=== PATIENT | male | born 1975 | race Caucasian/White ===

== ENCOUNTER 2018-03-11 07:01 | Emergency (ER) | payer OTHER, SELFPAY ==
[2018-03-11 07:07] VITALS: BP 133/83; PULSE 80; RESP 16; TEMP 36.8; O2SAT 92
--- NOTE | 2018-03-11 08:15 | DI.RAD_ITS ---
SYMPTOM/DIAGNOSIS: COUGH PA AND LATERAL CHEST: No priors. The heart is normal in size. The lungs are clear. The mediastinal structures and pleura appear intact. CONCLUSION: Normal chest.
--- NOTE | 2018-03-11 08:30 | W.ED.GENAD ---
Discharge Plan Disposition Patient Disposition: HOME Discharge Details Chief Complaint: RespSymp Clinical Impression: Bronchitis ED Provider: Ilia Oliver Home Meds and New Rx's Prescriptions: New doxycycline hyclate 100 mg capsule 100 mg PO BID Qty: 13 RF: 0 Discharge Instructions Instructions: How to Stop Smoking (ED), Acute Bronchitis (ED) Additional Instructions: Please rest over the next few days. Take antibiotic as prescribed. Please contact your primary care physician to arrange follow-up. Return to the ER for any worsening or new concerning symptoms. Stand Alone Forms: Work Release Medical Decision Making 8:15 -- 32yo m smoker here with SOB and cough over the past 4 days. Saturating in the low 90s. Afebrile. Hemodynamically stable. 8:54 -- cxr reviewed and interpreted by radiology: negative Plan to treat with doxycycline for bronchitis vs early pneumonia. Patient was advised to follow-up with PCP. I recommended he have a follow-up appointment in the next 1-2 weeks if symptoms do not completely resolve with antibiotics. Patient verbalizd understanding of importance of follow-up. I encouraged him to return to the ER at any time for worsening or new concerning symptoms. Smoking cessation counseling was provided. We discussed importance of continued efforts to stop smoking. Patient seems motivated. HPI General Mode of arrival: ambulatory. Date/Time Provider Initiated Documentation: 03/11/18 07:59. Limitations to Documentation: no limitations. Information obtained by: patient. HPI Narrative: 42-year-old male smoker presents with chief complaint of shortness of breath. Patient notes that he has had shortness of breath over the past 4 days. Symptoms are persistent and seemed to wax and wane in intensity. At times shortness of breath is moderate to severe. No modifiers. He has associated cough that is intermittently productive of green sputum over the past 4 days. Patient denies associated fever. No chest pain. No leg swelling or calf pain. No recent travel. 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 Patient does note a [id number] smoking history. He has never been diagnosed with asthma or COPD. Related Data Home Medications Medication Instructions Recorded Confirmed doxycycline hyclate 100 mg PO BID #13 cap 03/11/18 Previous Rx's Medication Instructions Recorded doxycycline hyclate 100 mg PO BID #13 cap 03/11/18 Allergies Allergy/AdvReac Type Severity Reaction Status Date / Time ibuprofen AdvReac Intermediate Unverified 03/11/18 07:11 General Stated Complaint: RespSymp LILLIAN: 3 Review of Systems Cardiovascular Denies chest pain Respiratory Reports as per HPI and Reports cough PFSH Social History Smoking/Tobacco Use Status: Current every day Exam Const General: cooperative and no acute distress HENMT Head: normocephalic and atraumatic Mouth: moist mucous membranes Eyes Conjunctivae: normal conjunctivae Sclera: normal sclerae EOM: EOM intact bilaterally Neck Neck: trachea midline and supple Resp Effort & Inspection: normal respiratory effort, able to speak in complete sentences and normal respiratory pattern Auscultation: clear to auscultation bilaterally, no rales, no rhonchi and no wheezes Other: intermittent cough Cardio Jugular venous pressure: no JVD Rate: regular rate and not tachycardic Rhythm: regular rhythm GI Palpation: soft, not firm, no guarding, no masses, not rigid and nontender Skin General skin exam: no rashes or lesions noted Other: no cyanosis Neuro General: alert, awake, oriented x3 and tone normal Extrem General: no edema Psych Appearance: grossly normal Mental Status: mental status grossly normal Speech and Movement: speech and movement normal Course Vital Signs Temperature 36.8 C 03/11/18 07:07 Pulse 80 03/11/18 07:07 Respiratory Rate 16 03/11/18 07:07 Blood Pressure 133/83 03/11/18 07:07 Pulse Oximetry 92 L 03/11/18 07:07 Temperature 36.8 C 03/11/18 07:07 Pulse 80 03/11/18 07:07 Respiratory Rate 16 03/11/18 07:07 Respiratory Effort Non-Labored 03/11/18 07:11 Respiratory Depth Normal 03/11/18 07:11 Blood Pressure 133/83 03/11/18 07:07 Blood Pressure Position Sitting 03/11/18 07:07 Pulse Oximetry 92 L 03/11/18 07:07 Oxygen Delivery Method Room Air 03/11/18 07:07 Oxygen Flow Rate 0 03/11/18 07:07 Pain Level 3 03/11/18 07:07
--- NOTE | 2018-03-11 08:36 | ED.GENADUL_ITS ---
Discharge Plan Disposition Patient Disposition: HOME Discharge Details Chief Complaint: RespSymp Clinical Impression: Bronchitis ED Provider: Ilia Oliver Home Meds and New Rx's Prescriptions: New doxycycline hyclate 100 mg capsule 100 mg PO BID Qty: 13 RF: 0 Discharge Instructions Instructions: How to Stop Smoking (ED), Acute Bronchitis (ED) Additional Instructions: Please rest over the next few days. Take antibiotic as prescribed. Please contact your primary care physician to arrange follow-up. Return to the ER for any worsening or new concerning symptoms. Stand Alone Forms: Work Release Medical Decision Making 8:15 -- 32yo m smoker here with SOB and cough over the past 4 days. Saturating in the low 90s. Afebrile. Hemodynamically stable. 8:54 -- cxr reviewed and interpreted by radiology: negative Plan to treat with doxycycline for bronchitis vs early pneumonia. Patient was advised to follow-up with PCP. I recommended he have a follow-up appointment in the next 1-2 weeks if symptoms do not completely resolve with antibiotics. Patient verbalizd understanding of importance of follow-up. I encouraged him to return to the ER at any time for worsening or new concerning symptoms. Smoking cessation counseling was provided. We discussed importance of continued efforts to stop smoking. Patient seems motivated. HPI General Mode of arrival: ambulatory . Date/Time Provider Initiated Documentation: 03/11/18 07:59 . Limitations to Documentation: no limitations . Information obtained by: patient . HPI Narrative: 42-year-old male smoker presents with chief complaint of shortness of breath. Patient notes that he has had shortness of breath over the past 4 days. Symptoms are persistent and seemed to wax and wane in intensity. At times shortness of breath is moderate to severe. No modifiers. He has associated cough that is intermittently productive of green sputum over the past 4 days. Patient denies associated fever. No chest pain. No leg swelling or calf pain. No recent travel. 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 Patient does note a [id number] smoking history. He has never been diagnosed with asthma or COPD. Related Data Home Medications Medication Instructions Recorded Confirmed doxycycline hyclate 100 mg PO BID #13 cap 03/11/18 Previous Rx's Medication Instructions Recorded doxycycline hyclate 100 mg PO BID #13 cap 03/11/18 Allergies Allergy/AdvReac Type Severity Reaction Status Date / Time ibuprofen AdvReac Intermediate Unverified 03/11/18 07:11 General Stated Complaint: RespSymp LILLIAN: 3 Review of Systems Cardiovascular Denies chest pain Respiratory Reports as per HPI and Reports cough PFSH Social History Smoking/Tobacco Use Status: Current every day Exam Const General: cooperative and no acute distress HENMT Head: normocephalic and atraumatic Mouth: moist mucous membranes Eyes Conjunctivae: normal conjunctivae Sclera: normal sclerae EOM: EOM intact bilaterally Neck Neck: trachea midline and supple Resp Effort & Inspection: normal respiratory effort, able to speak in complete sentences and normal respiratory pattern Auscultation: clear to auscultation bilaterally, no rales, no rhonchi and no wheezes Other: intermittent cough Cardio Jugular venous pressure: no JVD Rate: regular rate and not tachycardic Rhythm: regular rhythm GI Palpation: soft, not firm, no guarding, no masses, not rigid and nontender Skin General skin exam: no rashes or lesions noted Other: no cyanosis Neuro General: alert, awake, oriented x3 and tone normal Extrem General: no edema Psych Appearance: grossly normal Mental Status: mental status grossly normal Speech and Movement: speech and movement normal Course Vital Signs Temperature 36.8 C 03/11/18 07:07 Pulse 80 03/11/18 07:07 Respiratory Rate 16 03/11/18 07:07 Blood Pressure 133/83 03/11/18 07:07 Pulse Oximetry 92 L 03/11/18 07:07 Temperature 36.8 C 03/11/18 07:07 Pulse 80 03/11/18 07:07 Respiratory Rate 16 03/11/18 07:07 Respiratory Effort Non-Labored 03/11/18 07:11 Respiratory Depth Normal 03/11/18 07:11 Blood Pressure 133/83 03/11/18 07:07 Blood Pressure Position Sitting 03/11/18 07:07 Pulse Oximetry 92 L 03/11/18 07:07 Oxygen Delivery Method Room Air 03/11/18 07:07 Oxygen Flow Rate 0 03/11/18 07:07 Pain Level 3 03/11/18 07:07
[2018-03-11 08:41] VITALS: PULSE 68; O2SAT 95
[2018-03-11] MEDS: Doxycycline Hyclate 100 MG CAP PO (08:51)
[2018-03-11 09:04] VITALS: BP 133/83; PULSE 68; RESP 16; TEMP 36.8; O2SAT 95
--- NOTE | 2018-03-12 09:08 | PDOC.ERCMPRO ---
Care Management Progress Note 03/12/18-Pt seen on 03/11/18 for bronchitis and significant hx of smoking. Request to establish PCP and f/u within 1-2 weeks was faxed to [facility] as Dr. Shira Gallegos was environmental laboratory technician.
== END 2018-03-11 09:05 | disposition home or self-care (01) ==
LOC: ER 09:08
PROVIDERS: Emergency Provider Student in an Organized Health Care Education/Training Program
DX: J20.9 Acute bronchitis, unspecified (principal); F17.210 Nicotine dependence, cigarettes, uncomplicated
CPT/HCPCS: 99283; 71046

== ENCOUNTER 2018-03-14 10:49 | Emergency (ER) | payer OTHER, SELFPAY ==
[2018-03-14] VITALS (38 sets, daily range): BP systolic 110–128; BP diastolic 62–88; PULSE 60–86; RESP 2–24; TEMP 36.8–37.1; O2SAT 91–100
--- NOTE | 2018-03-14 10:52 | DI.RAD_ITS ---
SYMPTOM/DIAGNOSIS: SHORTNESS OF BREATH, DIZZINESS, R/O ACUTE DISEASE CHEST X-RAY: PA and lateral. Comparison 03/11/18 The heart is normal in size. The lungs are clear. The mediastinal structures and pleura appear intact. CONCLUSION: Normal chest.
--- NOTE | 2018-03-14 10:54 | W.ED.GENAD ---
Discharge Plan Disposition Patient Disposition: HOME Condition: Improving Discharge Details Chief Complaint: Dizzy/Sync Clinical Impression: Acute bronchitis Primary Care Provider: NONE,NONE ED Provider: Odalis Marte Home Meds and New Rx's Prescriptions: Continue doxycycline hyclate 100 mg capsule 100 mg PO BID Qty: 13 RF: 0 Discharge Instructions Instructions: Acute Bronchitis (ED) Additional Instructions: Use the inhaler 2 puffs every 4-6 hours as needed and directed for shortness of breath or wheezing. Take the steroids until finished. Finished the antibiotics as directed. Follow-up with the primary care doctor in 1 week for reevaluation. You should receive a call from care management regarding this follow-up appointment. Return to the emergency department any worsening or new concerning symptoms. Discharge Data Discharge Date/Time-TO BE ENTERED AT DEPARTURE: 03/14/18 16:39 Discharge Physician: Odalis Marte Medical Decision Making Patient is a 42-year-old smoker who presents for cough and shortness of breath for the past week. Presented today for an episode of dizziness while walking to work in which he needed to sit down. Patient was seen here 3 days ago for same and diagnosed with bronchitis and sent home with doxycycline which he is taking. He denies chest pain. 1052 --EKG on arrival notes a rate of 72, sinus, no acute ST elevation or depression, QTc 387. QRS 94. Cardiac workup and albuterol ordered on arrival and negative. White blood cell count 10. Hemoglobin 16. D-dimer 128. Troponin negative. Chest x-ray negative. 1230 --patient states he feels a little better after the albuterol treatment. On my exam, patient has diffuse wheezing and rhonchi. Oxygen saturation 94% on room air. Patient airway is intact and he speaking in full sentences. Patient would benefit from another neb treatment and dose of steroids. He appears mildly anxious, will give a dose of Ativan. 1625 --patient feels much better is requesting to go home. We will give inhaler for home and prescription for steroids. Instructed to finish his doxycycline. We will have care management to schedule follow-up appointment with her primary care doctor and to return here if worse. HPI General Mode of arrival: ambulatory. Date/Time Provider Initiated Documentation: 03/14/18 10:51. Limitations to Documentation: no limitations. Information obtained by: patient. HPI Narrative: Patient is a 42-year-old smoker who presents for cough and shortness of breath for the past week. States the cough is productive of green and [place]gadillo sputum. Presented today for an episode of dizziness while walking to work in which he needed to sit down. Patient was seen here 3 days ago for same and diagnosed with bronchitis and sent home with doxycycline which he is taking. He denies known fever, nausea, vomiting, chest pain, palpitations, leg pain, leg swelling, recent travel or recent surgery. States he has been eating and drinking normally. States he works in [employer] and does not always use respiratory protection. Past medical history: None Surgical history: Dental extraction, right fourth finger surgery Social history: Smokes tobacco, occasional beer, denies drugs Medications: Doxycycline Allergies: None; Ibuprofen (precautionary for bleeding) PCP: None Related Data Home Medications Medication Instructions Recorded Confirmed doxycycline hyclate 100 mg PO BID #13 cap 03/11/18 03/14/18 Previous Rx's Medication Instructions Recorded doxycycline hyclate 100 mg PO BID #13 cap 03/11/18 Allergies Allergy/AdvReac Type Severity Reaction Status Date / Time ibuprofen AdvReac Intermediate precautionary Unverified 03/14/18 11:02 for bleeding General Stated Complaint: Dizzy/Sync LILLIAN: 3 Review of Systems Review of Systems All systems reviewed & are unremarkable except as noted in HPI and below Constitutional Denies chills, Denies excessive sweating, Denies fatigue, Denies fever(s), Denies weakness and Denies weight loss Eyes Reports system reviewed and no additional complaints, except as docu and Denies blurry vision ENT Denies vertigo, Denies dizziness, Denies otalgia, Denies nasal congestion, Denies sore throat and Denies throat swelling Cardiovascular Denies chest pain, Denies syncope, Denies rapid heart rate and Reports dyspnea Respiratory Reports cough and Reports dyspnea Gastrointestinal Denies abdominal pain, Denies diarrhea and Denies vomiting Genitourinary Denies hematuria, Denies dysuria and Denies flank pain Musculoskeletal Denies back pain and Denies joint swelling Integumentary/Breasts Denies lesions and Denies rash Neurologic Denies behavioral changes, Denies confusion, Denies vertigo, Denies dizziness, Denies syncope and Denies weakness Psychiatric Denies behavioral changes, Denies confusion and Denies depression Endocrine Denies excessive sweating and Denies fatigue Hematologic/Lymphatic Denies easy bruising and Denies lymphadenopathy Allergic/Immunologic Denies throat swelling [facility] Social History Smoking/Tobacco Use Status: Current every day Exam Const General: cooperative and healthy appearing Orientation: alert and awake HENMT Head: normal to inspection Ears: hearing grossly normal bilaterally, external ears normal and TM's normal bilaterally General nose exam: external nose normal Face and sinus: normal facial exam Mouth: oral mucosae normal Throat: posterior oropharynx normal Eyes General: appearance normal, both eyes and all related structures Eyelids: eyelids normal Pupils: PERRL EOM: EOM intact bilaterally Neck Neck: normal visual inspection Lymphatic: no lymphadenopathy noted Chest Chest: normal inspection of the chest Resp Effort & Inspection: normal respiratory effort and able to speak in complete sentences Auscultation: no crackles, no rales, rhonchi and wheezes Cardio Rate: regular rate Rhythm: regular rhythm GI Inspection: normal to inspection Palpation: soft, not firm, no guarding, no hepatosplenomegaly, no masses and nontender Auscultation: normal bowel sounds Skin General skin exam: no rashes or lesions noted Neuro General: alert and awake Cognition: normal cognition Speech: speech normal Gait: normal gait Motor: muscle tone normal throughout Sensory Exam: no sensory deficits noted Extrem General: normal to inspection, full ROM, normal capillary refill and no edema Psych Appearance: grossly normal Mental Status: mental status grossly normal Speech and Movement: speech and movement normal Affect: normal affect Thought Process: normal Course Vital Signs Temperature 98.8 F 03/14/18 10:42 Pulse 80 03/14/18 10:42 Respiratory Rate 14 03/14/18 10:42 Blood Pressure 127/84 03/14/18 10:42 Pulse Oximetry 95 03/14/18 10:42 Temperature 98.8 F 03/14/18 10:42 Temperature Source Skin 03/14/18 10:42 Pulse 80 03/14/18 10:42 Respiratory Rate 14 03/14/18 10:42 Blood Pressure 127/84 03/14/18 10:42 Blood Pressure Position Supine 03/14/18 10:42 Pulse Oximetry 95 03/14/18 10:42 Oxygen Delivery Method Room Air 03/14/18 10:42 Oxygen Flow Rate 0 03/14/18 10:42 Pain Level 0 03/14/18 10:42
[2018-03-14] MEDS: Albuterol 2.5 MG/3 ML INH SOLN VIAL UPD (11:09)
[2018-03-14] MEDS: Normal Saline 1,000 ML 1000 ML IV (11:15)
[2018-03-14 11:37] LABS: Abs Immature Grans 0.06 k/cumm (0.0-0.09); Absolute Basophil Count 0.15 k/cumm (0.0-0.2); Absolute Eosinophil Count 0.19 k/cumm (0.0-0.7); Absolute Lymphocyte Count 2.51 k/cumm (1.2-3.4); Absolute Monocyte Count 1.16 k/cumm (0.11-0.7); Absolute Neutrophil Count 6.18 k/cumm (1.2-6.7); Basophils % 1.5; Eosinophils % 1.9; Immature Grans % 0.6; Lymphocytes % 24.5; Mean Corp. HGB Concentration 36.4 g/dL (32.0-36.0); Mean Corpuscular Hemoglobin 31.1 pg (27.0-33.0); Mean Corpuscular Volume 85.6 fL (80-95); Mean Platelet Volume 9.2 fL (8.0-11.0); Monocytes % 11.3; Neutrophils % 60.2; Platelet Count 282 x1000/uL (130-400); RBC 5.14 m/cumm (4.50-6.00); RBC Distribution Width 12.7 % (11.8-14.1); White Blood Cell Count 10.25 k/cumm (4.4-10.8)
[2018-03-14 11:51] LABS: ALT 39 U/L (12-78); AST 20 U/L (15-37); Albumin 4.2 g/dL (3.4-5.0); Alkaline Phosphatase 67 U/L (46-116); Anion Gap 11.2 mmol/L (3-11); BUN 14 mg/dL (7-18); Bilirubin, Direct 0.12 mg/dL (0.00-0.20); Bilirubin, Total 0.7 mg/dL (0.2-1.0); CO2 23.8 mmol/L (21.0-32.0); Calcium 8.8 mg/dL (8.5-10.1); Chloride 104 mmol/L (98-107); Glucose 96 mg/dL (70-100); Magnesium 1.6 mg/dL (1.8-2.4); Potassium 3.7 mmol/L (3.5-5.1); Sodium 139 mmol/L (136-145); Total Protein 7.2 g/dL (6.4-8.2)
[2018-03-14 11:56] LABS: Troponin I < 0.02 ng/mL (0.00-0.06)
[2018-03-14 12:11] LABS: D-Dimer 128 ng/mlFEU (<500)
[2018-03-14] MEDS: predniSONE 20 MG TAB 60 MG PO (13:33)
[2018-03-14] MEDS: LORazepam 0.5 MG TAB PO (13:34)
[2018-03-14] MEDS: Albuterol 2.5 MG/3 ML INH SOLN VIAL 7.5 MG UPD (13:45)
[2018-03-14] MEDS: Albuterol HFA 8 GM 60 PUFF INH IH (16:36)
== END 2018-03-14 16:39 | disposition home or self-care (01) ==
PROVIDERS: Emergency Provider Physician Assistant
DX: J20.9 Acute bronchitis, unspecified (principal); F17.210 Nicotine dependence, cigarettes, uncomplicated
CPT/HCPCS: 36415; 80053; 80076; 93005; 94640; 94644; 96360; 99285; 71046; 83735; 84484; 85025; 85379; 93010; 99284; J7512; J7613

== ENCOUNTER 2023-09-03 13:58 | Emergency (ER) | payer SELFPAY ==
[2023-09-03 14:04] VITALS: BP 140/99; PULSE 77; RESP 16; TEMP 37; O2SAT 97
--- NOTE | 2023-09-03 14:45 | DI.RAD_ITS ---
Exam(s) XR THORACIC SPINE COMPLETE EXAM: XR THORACIC SPINE COMPLETE CLINICAL HISTORY: rotational injury. TECHNIQUE: 2D digital imaging was performed. COMPARISON: No exams were available for comparison FINDINGS: 3 views No evidence of compression fracture nor listhesis nor disc space narrowing. No abnormal widening of the paraspinal lines. No scoliosis. No osseous lesions. Bone density is normal. IMPRESSION: No significant radiographic findings on these thoracic spine images. DATA REPOSITORY: RADIATION DOSE DELIVERED:
--- NOTE | 2023-09-03 14:58 | ED.GENADUL_ITS ---
Discharge Plan Disposition Patient Disposition: Home Condition: Good Discharge Details Chief Complaint: Nk/Back Pain Clinical Impression: Muscle spasm, Back pain, thoracic Primary Care Provider: None,None ED Provider: Miriam Boland Home Meds and New Rx's Prescriptions: No Action No Known Home Meds Discharge Instructions Instructions: Muscle Spasm (ED), Back Pain (ED) Additional Instructions: X-rays reassuring here today. Please encourage hydration. May use 1000 mg of Tylenol 4 times a day to help with pain. This naproxen is worked well for you historically, please go back to using this morning and night to help with inflammation and pain. You may use lidocaine patches. Referral for physical therapy is attached. Please encourage stretching. Gentle range of motion. Heat and/or ice to help with pain. May advance her activities as tolerated. Referral for local primary care has been sent. If you develop any new or worsening symptoms to seek care urgently once again. Stand Alone Forms: Physical Therapy Referral, Work Release HPI General Mode of arrival: ambulatory . Date/Time Provider Initiated Documentation: 09/03/23 13:59 . Limitations to Documentation: no limitations . Information obtained by: patient and RN notes reviewed . History of Present Illness 48 year old M presents to the emergency department with the chief complaint of thoracic spine pain, described as severe and similar to prior episodes (has had back pain historically, typically lower spine associated with disc issues), Quality is described as aching, and is localized to the back. Patient reports no radiation. Patient started experiencing this day(s) (8) and it has been constant. Immobilization improves symptom(s), Movement worsens symptoms . Patient notes no other symptoms.; denies chest pain, cough, fever/chills, headaches, nausea/vomiting, rash, shortness of breath and weakness. Patient did receive the following treatments prior to arrival, none Related Data Home Medications Medication Instructions Recorded Confirmed Unknown [No Known Home Meds] 09/03/23 09/03/23 Allergies Allergy/AdvReac Type Severity Reaction Status Date / Time ibuprofen AdvReac Intermediate precautionary Unverified 09/03/23 14:09 for bleeding General Stated Complaint: Nk/Back Pain LILLIAN: 3 Review of Systems Constitutional Constitutional: Reports as per HPI, Denies chills, Denies fever(s), Denies frequent falls and Denies headache(s) ENT Ears, Nose, Mouth, and Throat: Denies headache(s) Cardiovascular Cardiovascular: Denies chest pain, Denies dyspnea and Denies dyspnea on exertion Respiratory Respiratory: Denies cough, Denies dyspnea and Denies dyspnea on exertion Gastrointestinal Gastrointestinal: Denies abdominal pain, Denies change in bowel habits and Denies fecal incontinence Genitourinary Genitourinary: Reports as per HPI, Denies urinary hesitancy and Denies urinary incontinence Musculoskeletal Musculoskeletal: Reports as per HPI, Reports back pain, Denies muscle weakness, Denies numbness, Denies radiating pain into limb, Reports stiffness and Denies tingling Integumentary/Breasts Skin/Breast: Reports as per HPI and Denies rash Neurologic Neurologic: Reports as per HPI, Denies frequent falls, Denies headache(s), Denies localized weakness, Denies numbness, Denies radicular pain, Denies sensory deficit, Denies tingling and Denies paresthesias Exam Const General: cooperative, healthy appearing, comfortable, no acute distress, well developed and well groomed Nutritional Appearance: average body habitus and well nourished Orientation: alert and awake Eyes General: appearance normal, both eyes and all related structures Neck Neck: normal visual inspection, full ROM, no lymphadenopathy and no meningeal signs Resp Effort & Inspection: normal respiratory effort and able to speak in complete sentences Auscultation: clear to auscultation bilaterally Cardio Rate: regular rate Rhythm: regular rhythm Heart Sounds: S1 normal and S2 normal Back/Spine/Pelvis Cervical Spine: normal cervical lordosis, cervical ROM normal, No cervical spasm, No cervical spinal tenderness and No step off deformity Thoracic/Lumbar Spine: thoracic and lumbar spine normal to inspection, No paraspinal tenderness, thoracic spinal tenderness (diffuse, no point tenderness, no step-off) and No lumbar spinal tenderness Back/spine/pelvis image: 2 1. area of lipoma, no erythema, warmth, tenderness 2. area of smaller lipoma, no erythema, warmth, tenderness Skin General skin exam: no rashes or lesions noted Neuro General: patient alert and patient awake Cognition: normal cognition Speech: speech normal Gait: normal gait Motor: muscle tone normal throughout, strength 5/5 throughout, no movement abnormalities noted and no fasciculations Sensory Exam: no sensory deficits noted (no saddle paresthesias) Extrem General: normal to inspection, full ROM, capillary refill normal, no joint enlargement, no pedal edema, no calf tenderness and normal gait Course Vital Signs Vital signs: Vital Signs Temperature 37.0 C 09/03/23 14:04 Pulse 77 09/03/23 14:04 Respiratory Rate 16 09/03/23 14:04 Blood Pressure 140/99 H 09/03/23 14:04 Pulse Oximetry 97 09/03/23 14:04 Temperature 37.0 C 09/03/23 14:04 Pulse 77 09/03/23 14:04 Respiratory Rate 16 09/03/23 14:04 Blood Pressure 140/99 H 09/03/23 14:04 Pulse Oximetry 97 09/03/23 14:04 Pain Level 8 09/03/23 14:04 Comment center of shoulder blades 09/03/23 14:04 Medical Decision Making Patient is a pleasant 48-year-old male no significant past medical history, presenting today with chief complaint of thoracic spine pain. He reports that this began 8 days ago. States that he had been shoveling snow when he slipped and suffered a rotational injury causing him to finally land into the snow. He denies injury at the time of the fall but feels that it was more pain associated with the rotational injury. He denies any new numbness or tingling. Reports chronic sensory deficit along the ulnar side of the right upper extremity which she associates with elbow pathology. No acute change in this. Denies any change in gait or difficulty with ambulation. No change in bowel or bladder habits. Denies any shortness of breath, chest pain. No cough or shortness of breath. Patient was seen at outside hospital, diagnosed with muscle spasm. Patient is treated with oral prednisone. He states that this helped for about 1 day and then pain came back not worsened. Has not been using much for [id number] pain medication as he is concerned for blunting his pain. Patient does have a history of suffered her to addiction and is also concerned with use of these medications. On exam, patient appears nontoxic. Neurovascularly intact. Exam of the spine shows only diffuse pain along the thoracic region and midline pain but no step- off. No pain elsewhere or pain with palpation of the ribs. 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 He reports this is followed by his primary care. This primarily on the upper right side extending into the neck. Also with a small lipoma left of midline. No erythema or warmth. No pain with palpation over these areas. While I agree with the initial concern of muscle spasm the most likely, consider potential fractures patient's been 8 days since his initial injury and pain has not improved at all. Will obtain an x-ray out of abundance of caution. Will give Tylenol and ibuprofen to help with discomfort. Discussed plan with the patient who is in agreement FINDINGS: 3 views No evidence of compression fracture nor listhesis nor disc space narrowing. No abnormal widening of the paraspinal lines. No scoliosis. No osseous lesions. Bone density is normal. IMPRESSION: No significant radiographic findings on these thoracic spine images. Discussed these findings with the patient. He states that improved after Tylenol, lidocaine and ibuprofen. He reports that he has used naproxen in the past with good results. Will go back to using this as his NSAID of choice. Feels ready for discharge. Will give work note. Given the heavy lifting required and significant discomfort with movement, will clear for the next week. Encourage hydration. Encouraged range of motion, stretching. This patient does not have local primary care, have referred to primary care through care management. Given the severity of his pain, asked that he follow-up in the next 2 weeks. Return precautions were discussed. Also refer to physical therapy. All of his questions and concerns were addressed and he is agreement this plan. Quality:SDOH Health Related Social Needs: 2 No Data to Display PFSH All Active Problems (Updated 09/03/23 @ 16:11 by JAYME Jacobson) Back pain, thoracic (Acute) Muscle spasm (Acute) Social History Smoking/Tobacco Use Status: Current every day Smoking risk assessment performed?: Yes Drug use: Never Do you feel safe in your relationship?: Yes
[2023-09-03] MEDS: Ibuprofen 600 MG TAB PO (15:13)
[2023-09-03] MEDS: Acetaminophen 500 MG TAB 1000 MG PO (15:13)
[2023-09-03] MEDS: Lidocaine 5% Patch 1 PATCH TP (15:13)
--- NOTE | 2023-09-03 16:12 | NUR.NOTE ---
Referral given to Care Managers for help with Establishing Care with a Primary Care Provider for a follow up Back Pain.
== END 2023-09-03 16:27 | disposition home or self-care (01) ==
PROVIDERS: Emergency Provider Physician Assistant
DX: M54.6 Pain in thoracic spine (principal); M62.830 Muscle spasm of back; D17.1 Benign lipomatous neoplasm of skin and subcutaneous tissue of trunk; F17.210 Nicotine dependence, cigarettes, uncomplicated
CPT/HCPCS: 99283; 72072

== ENCOUNTER 2024-02-10 10:09 | Emergency (ER) | payer SELFPAY ==
[2024-02-10 10:13] VITALS: BP 153/94; PULSE 74; RESP 18; TEMP 36.8; O2SAT 96
--- NOTE | 2024-02-10 10:25 | ED.GENADUL_ITS ---
Discharge Plan Disposition Patient Disposition: Home Condition: Stable Discharge Details Clinical Impression: Dental infection Primary Care Provider: Adam Victor ED Provider: Adam Victor Home Meds and New Rx's Prescriptions: New amoxicillin-pot clavulanate 875-125 mg tablet 1 tab PO BID 7 Days Qty: 14 0RF Discharge Instructions Instructions: Dental Pain ED Additional Instructions: Please seek dental follow-up. Follow-up with your primary care physician. Return to the emergency department for any worsening symptoms HPI General Date/Time Provider Initiated Documentation: 02/10/24 10:16 . HPI Narrative: 48-year-old male presents with left upper dental pain over the last 3 weeks, now with some facial swelling. Denies trouble speaking or swallowing. Denies fevers chills nausea vomiting or other systemic signs of illness Related Data Home Medications ?Medication ?Instructions ?Recorded ?Confirmed amoxicillin 875 mg-potassium 1 tab PO BID 7 days #14 tabs 02/10/24 clavulanate 125 mg tablet Previous Rx's ?Medication ?Instructions ?Recorded amoxicillin 875 mg-potassium 1 tab PO BID 7 days #14 tabs 02/10/24 clavulanate 125 mg tablet Allergies Allergy/AdvReac Type Severity Reaction Status Date / Time ibuprofen AdvReac Intermediate precautionary Unverified 02/10/24 10:12 for bleeding General Stated Complaint: DentalOral LILLIAN: 4 Exam Narrative Exam Narrative: Some induration of left maxillary soft tissue no crepitus or fluctuance No evidence of periapical abscess or dental abscess on examination No evidence of sublingual submandibular or submental induration Full range of motion of neck Normal speech swelling secretions moist mucous membranes Course Vital Signs Vital signs: Vital Signs Temperature 36.8 C 02/10/24 10:13 Pulse 74 02/10/24 10:13 Respiratory Rate 18 02/10/24 10:13 Blood Pressure 153/94 H 02/10/24 10:13 Pulse Oximetry 96 02/10/24 10:13 Temperature 36.8 C 02/10/24 10:13 Temperature Source Skin 02/10/24 10:13 Pulse 74 02/10/24 10:13 Respiratory Rate 18 02/10/24 10:13 Respiratory Effort Normal, Non-Labored 02/10/24 10:14 Blood Pressure 153/94 H 02/10/24 10:13 Blood Pressure Position Sitting 02/10/24 10:13 Pulse Oximetry 96 02/10/24 10:13 Oxygen Delivery Method Room Air 02/10/24 10:13 Oxygen Flow Rate 0 02/10/24 10:13 Pain Level 7 02/10/24 10:13 Medical Decision Making 48-year-old male presents with left painful dental infection over the last 3 weeks, some maxillary facial swelling on examination no submental submandibular sublingual induration, patient is tolerating secretions with normal voice full range of motion of neck, no respiratory distress, no appreciable abscess for bedside drainage. Will initiate Augmentin will administer Toradol for anti- inflammatory and analgesic purposes. Home care instructions and strict return precautions given. Quality:SDOH Health Related Social Needs: No Data to Display PFSH All Active Problems (Updated 02/10/24 @ 10:27 by Adam Victor MD) Dental infection (Acute) Social History Smoking/Tobacco Use Status: Current every day Tobacco Type: e-cigarettes Smoking risk assessment performed?: Yes Alcohol Intake: current Drug use: Never Substance use type: does not use Do you feel safe in your relationship?: Yes
[2024-02-10] MEDS: Amoxicillin 875/Clav. 125 TAB PO (10:33)
== END 2024-02-10 10:35 | disposition home or self-care (01) ==
LOC: ER 11:02
PROVIDERS: Emergency Provider Emergency Medicine; PCP Emergency Medicine
DX: K08.89 Other specified disorders of teeth and supporting structures (principal); K04.7 Periapical abscess without sinus
CPT/HCPCS: 99283

== ENCOUNTER 2024-03-18 17:39 | Emergency (ER) | payer SELFPAY ==
[2024-03-18 17:45] VITALS: BP 132/87; PULSE 75; RESP 15; TEMP 37.2; O2SAT 92
--- NOTE | 2024-03-18 18:24 | ED.GENADUL_ITS ---
Discharge Plan Disposition Patient Disposition: Home Condition: Stable Discharge Details Clinical Impression: Abscess Primary Care Provider: None,None ED Provider: Heydi Tello Home Meds and New Rx's Prescriptions: New cephalexin 500 mg capsule 500 mg PO QID 7 Days Qty: 28 0RF sulfamethoxazole-trimethoprim [Bactrim DS] 800-160 mg tablet 1 tab PO BID 7 Days Qty: 14 0RF Discharge Instructions Instructions: Skin Abscess Additional Instructions: You were seen in the emergency department today for evaluation of an abscess on your abdomen. In our department you had a full physical examination performed. You do have some evidence of contact dermatitis around it and were started on 2 antibiotics. You need to take all these antibiotics until they are gone, even if you start to feel better. Please use Tylenol and ibuprofen for management of pain. You were referred to primary care, it may take some time before you hear back from this department as they are quite busy. You can always return to the emergency department if you develop fever chills, nausea or vomiting that prevents you from taking your medications, or any other concerns. Please continue to use antibiotic ointment and bandages to cover it, and thank you for allowing us to be part of your care. HPI General Mode of arrival: ambulatory . Date/Time Provider Initiated Documentation: 03/18/24 18:15 . Limitations to Documentation: no limitations . Information obtained by: patient and old records reviewed . HPI Narrative: HPI: This is a 48-year-old male patient without significant past medical history who is presenting for evaluation of a skin lesion on his abdomen. He reports that a few days ago this was just a pimple, states that he noted worsening redness and swelling and a greenish thick discharge. He reports that he has been putting bandages and antibiotic ointment on it, has noted some irritation from the adhesive. In the past he has had pimples/lesions like this in his underarms, does not have any currently. Did not sustain injury to that area, has not had fevers or chills, has otherwise been in his normal state of health. He took antibiotics for a dental abscess a few weeks to a month ago. Exam: Gen: Awake and alert, in no apparent distress HEENT: Non-icteric sclera Neck: Supple Lungs: No apparent respiratory distress, normal respiratory effort. CV: Appears well perfused Abdomen: Non-distended, soft, nontender. The patient has a 1/2 cm fluctuant area consistent with abscess, with surrounding redness in the shape of a bandage concerning for contact dermatitis MSK: Moves 4 extremities without apparent limitation in ROM Skin: Visualized skin without rashes, cyanosis. Neuro: Normal Gait, no obvious focal deficits or facial asymmetry. Speaks in full, clear sentences. Psych: Appropriate for situation. MDM: This is a 48-year-old male patient presenting for evaluation of skin lesion. My differential includes but is not limited to abscess, cellulitis, contact dermatitis. Reassuringly the patient has no hemodynamic instability to suggest bacteremia, sepsis, or other severe bacterial infection. The size of the abscess is not conducive to I&D, and additionally it has an area with notable drainage already. I did provide the patient with antibiotic therapy to include Bactrim and Keflex, first dose given in the emergency department today. I do not see any indication at this time for advanced imaging or laboratory studies. At this time, the patient has had a full medical evaluation and is safe for discharge to home. They are hemodynamically stable, ambulatory, and tolerating PO. They are understanding of the follow-up plan and return precautions. They left our facility without incident. Heydi Tello MD Related Data Home Medications ?Medication ?Instructions ?Recorded ?Confirmed cephalexin 500 mg capsule 500 mg PO QID 7 days #28 caps 03/18/24 sulfamethoxazole 800 1 tab PO BID 7 days #14 tabs 03/18/24 mg-trimethoprim 160 mg tablet (Bactrim DS) Previous Rx's ?Medication ?Instructions ?Recorded cephalexin 500 mg capsule 500 mg PO QID 7 days #28 caps 03/18/24 sulfamethoxazole 800 1 tab PO BID 7 days #14 tabs 03/18/24 mg-trimethoprim 160 mg tablet (Bactrim DS) Allergies Allergy/AdvReac Type Severity Reaction Status Date / Time ibuprofen AdvReac Intermediate precautionary Unverified 02/10/24 10:12 for bleeding General Stated Complaint: RashLesion LILLIAN: 4 Course Vital Signs Vital signs: Vital Signs Temperature 37.2 C 03/18/24 17:45 Pulse 75 03/18/24 17:45 Respiratory Rate 15 03/18/24 17:45 Blood Pressure 132/87 03/18/24 17:45 Pulse Oximetry 92 03/18/24 17:45 Temperature 37.2 C 03/18/24 17:45 Temperature Source Tympanic 03/18/24 17:45 Pulse 75 03/18/24 17:45 Respiratory Rate 15 03/18/24 17:45 Blood Pressure 132/87 03/18/24 17:45 Blood Pressure Position Sitting 03/18/24 17:45 Pulse Oximetry 92 03/18/24 17:45 Medical Decision Making Quality:SDOH Health Related Social Needs: No Data to Display PFSH All Active Problems (Updated 03/18/24 @ 18:26 by Heydi Tello MD) Abscess (Acute) Social History Smoking/Tobacco Use Status: Current every day Tobacco Type: e-cigarettes Smoking risk assessment performed?: Yes Alcohol Intake: current Drug use: Never Substance use type: does not use Do you feel safe in your relationship?: Yes
[2024-03-18] MEDS: Cephalexin 500 MG CAP PO (19:10)
[2024-03-18] MEDS: Sulfameth/Trimeth DS TAB 1 TAB PO (19:11)
[2024-03-18 19:13] VITALS: BP 132/87; PULSE 75; RESP 15; TEMP 37.2; O2SAT 92
== END 2024-03-18 19:13 | disposition home or self-care (01) ==
PROVIDERS: Emergency Provider Emergency Medicine
DX: L02.211 Cutaneous abscess of abdominal wall (principal)
CPT/HCPCS: 99283

== ENCOUNTER 2024-06-29 15:36 | Emergency (ER) | payer OTHER, SELFPAY ==
[2024-06-29 15:48] VITALS: BP 144/79; PULSE 82; RESP 12; TEMP 36.8; O2SAT 95
--- NOTE | 2024-06-29 16:30 | DI.RAD_ITS ---
Exam(s) XR WRIST LT COMPLETE EXAM: XR WRIST LT COMPLETE CLINICAL HISTORY: pain post fall. TECHNIQUE: 2D digital imaging was performed of the left wrist. Three images were obtained. Scaphoi d, PA, oblique and lateral views were obtained. COMPARISON: CR XR WRIST RT COMPLETE from 06/29/2024 FINDINGS: BONES: No acute fracture is present. No bony destructive lesion is seen. JOINTS: The carpal bones are normally aligned. SOFT TISSUE: Normal. IMPRESSION: No acute fracture or dislocation. DATA REPOSITORY: RADIATION DOSE DELIVERED:
--- NOTE | 2024-06-29 16:30 | DI.RAD_ITS ---
Exam(s) XR WRIST RT COMPLETE EXAM: XR WRIST RT COMPLETE CLINICAL HISTORY: pain post fall. TECHNIQUE: 2D digital imaging was performed of the right wrist. Three views were obtained. PA, lat eral and oblique views were obtained. COMPARISON: No exams were available for comparison FINDINGS: BONES: No acute fracture is present. No bony destructive lesion is seen. JOINTS: The carpal bones are normally aligned. SOFT TISSUE: There is a 2 mm linear density lateral to the distal radius of uncertain, if any clinica l significance. The underlying bone is unremarkable. This may represent a dystrophic calcification or possible loose body. Please correlate clinically. IMPRESSION: No acute fracture or dislocation is present. DATA REPOSITORY: RADIATION DOSE DELIVERED:
[2024-06-29 18:18] VITALS: BP 132/87; PULSE 83; RESP 14; TEMP 36.7; O2SAT 95
--- NOTE | 2024-06-29 22:14 | ED.GENADUL_ITS ---
Discharge Plan Disposition Patient Disposition: Home Discharge Details Clinical Impression: Strain of both wrists Primary Care Provider: None,None ED Provider: Naomy Perez Home Meds and New Rx's Prescriptions: No Action No Known Home Meds Discharge Instructions Additional Instructions: Take ibuprofen and Tylenol as needed for pain recheck in 7 days with persistent pain use as tolerated return earlier with worsening pain, strength or sensation change, or should you have new or worsening complaints Stand Alone Forms: Work Release Discharge Data Discharge Date/Time-TO BE ENTERED AT DEPARTURE: 06/29/24 18:23 HPI General Date/Time Provider Initiated Documentation: 06/29/24 16:22 . HPI Narrative: This 48-year-old male presents after a slip and fall on ice, landing on his hands. He denies any additional injuries and the event occurred 2 days prior to arrival. He presents secondary to persistence of this pain, hands right greater than left. Denies strength or sensation changes or any additional complaints at this time. Related Data Home Medications ?Medication ?Instructions ?Recorded ?Confirmed Unknown [No Known Home Meds] 06/29/24 06/29/24 Allergies Allergy/AdvReac Type Severity Reaction Status Date / Time ibuprofen AdvReac Intermediate precautionary Unverified 06/29/24 15:51 for bleeding General Stated Complaint: Orthopedic LILLIAN: 4 Exam Narrative Exam Narrative: Alert and oriented 48-year-old male in no acute distress with tenderness to the dorsum of patient's wrist bilaterally, no localized tenderness, neurovascularly intact, no tenderness to fingers or elbows Course Vital Signs Vital signs: Vital Signs Temperature 36.8 C 06/29/24 15:48 Pulse 82 06/29/24 15:48 Respiratory Rate 12 06/29/24 15:48 Blood Pressure 144/79 H 06/29/24 15:48 Pulse Oximetry 95 06/29/24 15:48 Temperature 36.7 C 06/29/24 18:18 Temperature Source Oral 06/29/24 15:48 Pulse 83 06/29/24 18:18 Respiratory Rate 14 06/29/24 18:18 Blood Pressure 132/87 06/29/24 18:18 Blood Pressure Position Sitting 06/29/24 15:48 Pulse Oximetry 95 06/29/24 18:18 Oxygen Delivery Method Room Air 06/29/24 15:48 Oxygen Flow Rate 0 06/29/24 15:48 Pain Level 8 06/29/24 18:22 Medical Decision Making 48-year-old male presenting in no acute distress, alert and oriented, presenting post fall. X-rays were reviewed, no evidence of acute fracture per radiology interpretation my review. Patient was offered splints and he request to splints 1 for each wrist. He also request a work note which was supplied. He is encouraged to follow-up with his primary care physician in 1 week for repeat imaging at their discretion should he have persistent pain. Return precautions reviewed and patient expressed understanding Quality:SDOH Health Related Social Needs: No Data to Display PFSH All Active Problems (Updated 06/29/24 @ 18:13 by JAYME Fatima) Strain of both wrists (Acute) Social History Smoking/Tobacco Use Status: Current every day Tobacco Type: e-cigarettes Smoking risk assessment performed?: Yes Alcohol Intake: current Drug use: Never Substance use type: does not use Do you feel safe in your relationship?: Yes
--- NOTE | 2024-06-30 12:38 | NUR.NOTE ---
Access chart to complete the billing form for [facility]. Nursing Note:
== END 2024-06-29 18:23 | disposition home or self-care (01) ==
PROVIDERS: Emergency Provider Physician Assistant
DX: S66.912A Strain of unspecified muscle, fascia and tendon at wrist and hand level, left hand, initial encounter (principal); S66.911A Strain of unspecified muscle, fascia and tendon at wrist and hand level, right hand, initial encounter; W00.0XXA Fall on same level due to ice and snow, initial encounter; Y93.01 Activity, walking, marching and hiking; Y92.89 Other specified places as the place of occurrence of the external cause; F17.290 Nicotine dependence, other tobacco product, uncomplicated
CPT/HCPCS: 99283; 73110

== ENCOUNTER 2024-07-17 00:53 | Outpatient (CLI) | payer OTHER, SELFPAY ==
--- OUTSIDE RECORDS SUMMARY | 2024-07-17 00:55 | XMS_ITS | Continuity of Care Document ---
Author Organization [facility] Address [address] [place] [id number] Encounter [id number] NBR [id number] Date(s): 08/06/22 - 08/06/[address] [phone] [phone] Encounter Diagnosis Hematospermia(Discharge Diagnosis) - 08/06/22 Discharge Disposition: Home or Self Care Attending Physician: Jeffrey Lofton MD Admitting Physician: Jeffrey Lofton MD Referring Physician: Jeffrey Lofton MD Allergies, Adverse Reactions, Alerts No Known Medication Allergies Mental Status 08/06/22 Eye Opening Response Nadine Spontaneous ly Best Verbal Response [place] Oriented Best Motor Response [place] Obeys comman ds Nadine Coma Score 15 Vital Signs Most recent to oldest [Reference Range]: 1 Temperature Temporal Artery [36-38 Deg C ] 36.0 Deg C (08/06/22 9:37 PM) Peripheral Pulse Rate [60-100 bpm] 103 b pm *HI* (08/06/22 9:37 PM) Respiratory Rate [12-24 br/min] 16 br/mi n (08/06/22 9:37 PM) Blood Pressure [90-140/60-90 mmHg] 144/1 03mmHg *HI* (08/06/22 9:37 PM) Weight 95.71 kg (08/06/22 9:37 PM) Weight Dosing 95.71 kg (08/06/22 10:08 PM) Height 177.800 cm (08/06/22 9:37 PM) Height/Length Dosing 177.800 cm (08/06/22 10:08 PM) Body Mass Index 30.000 kg/m2 (08/06/22 9:37 PM) Social History Social History Type Response Tobacco Tobacco use status u nknown Tobacco Use:. Sex Discharge instructions * Event Display: Discharge Instructions Physician Emergency department Note * Jeffrey Lofton MD: PERFORM Event Display: ED Note Physician Authored Date: [id number] SHERMAN CLIFTON :1975 Age:46 years Sex:Male Visit Date:08/06/2022 Basic Information Time Seen: Jeffrey Lofton MD / 08/06/2022 21:51 Chief Complaint hematospermia x 1 day hemmerhoid bleeding x 4 days History Of Present Illness: Patient states that just this evening he realized that his??semen looked??bloody and rust colored. ??He states this never happened before. ??He denies any??painful ejaculation. ??Denies any dysuria. ??Denies any abdominal pain or fever. ??Denies any??concern for STD. ??He states that he is suffering from an inflamed hemorrhoid??but that is actually getting better and so is not sure that that is related. Review of Systems: Review of systems negative other than that stated above Physical Exam Vitals & Measurements T:??36.0?C ??(Temporal Artery)?? HR:??103??(Peripheral)?? RR:??16?? BP:??144/103?? SpO2:??97%?? HT:??177.800??cm?? WT:??95.71??kg?? BMI:??30.000?? Pain Score:??1?? O2 Therapy:??Room air?? General: Alert and oriented, well nourished, no acute distress. Eye: PERRL, EOMI, normal conjunctiva. HENT: Normocephalic,??normal hearing, moist oral mucosa, no scleral icterus, . Neck: Supple, non-tender, no carotid bruits, no JVD, no lymphadenopathy. No rigidity Lungs: Clear to auscultation and percussion, non-labored respiration. Heart: Normal rate, regular rhythm, no murmur, gallop or edema. Abdomen: Soft, non-tender, non-distended, normal bowel sounds, no masses. ??Rectal exam reveals a an inflamed hemorrhoid at the??4 o'clock position. ??There is no evidence of??a thrombosed hemorrhoidor active bleeding Musculoskeletal: Normal range of motion and strength, no tenderness or swelling. Skin: Skin is warm, dry and appropriate for ethnicity, no rashes or lesions. Neurologic: Awake, alert and oriented X4, CN II-XII intact. Psychiatric: Cooperative, appropriate mood and affect. Procedure No Qualifying Data Assessment/Plan 1.??Hematospermia??R36.1 I told the patient??there is not an evaluation??we can do here in the emergency department??but he was given the number for urology to make an appointment for follow-up with??the hematospermia. ??He will return for abdominal pain or any other problems Orders: Discharge Patient, 08/06/22 22:13:00 EST Problem List/Past Medical History Ongoing No qualifying data Historical No qualifying data Allergies No Known Medication Allergies Social History Electronic Cigarette/Vaping Electronic Cigarette Use: Unknown/not obtained. Tobacco Tobacco use status unknown Tobacco Use:. Electronically Signed on 08/06/22 11:29 PM Jeffrey Lofton MD Emergency department Discharge instructions * Jeffrey Lofton MD: PERFORM Event Display: ED Discharge Information Authored Date: [id number] SHERMAN CLIFTON :1975 Age:46 years Sex:Male Visit Date:08/06/2022 Discharge Instructions We would like to thank you for allowing us to assist you with your healthcare needs. The following includes patient education materials and information regarding your injury/illness. Diagnosis from Today's Visit Hematospermia Discharge Vitals Temperature??(Temporal Artery) 96.8 ??F (36.0 ??C) Heart Rate??(Peripheral) 103 Respiratory Rate?? 16 Blood Pressure?? 144/103?? Height?? 70.00 in (177.800 cm) Weight?? 211.04 lb (95.71 kg) BMI?? 30.000 Allergies No Known Medication Allergies What to Do Next Instructions from Your Care Team Call Dr. Greer (urology) for appointmet You were treated today on an emergency basis; it may be parks to contact your primary care provider to notify them of your visit today. You may have been referred to your regular doctor or a specialist, please follow up as instructed. If your condition worsens or you can't get in to see the doctor, contact the Emergency Department. Patient/Clerical Supervisor Signature Patient Name:SHERMAN CLIFTON I have received this information and my questions have been answered. Patient/Clerical Supervisor Name: Patient/Clerical Supervisor Signature: Relationship to Patient: Witness Name/Signature: Date: Electronically Signed on: 08/06/2022 22:14 ESTSigned by:RICCARDO Patient Care team information Care Team Personnel Name: Jeffrey Lofton MD Position: Physician Member Role: Referring Physician Address: Address: [address] [place] [phone] Name: Janet Bee Position: Nurse Member Role: ED Nurse
[2024-07-17 09:54] LABS: Glucose 102 mg/dL (74-106)
[2024-07-17 10:04] LABS: Calculated LDL 131 mg/dL (<100); Cholesterol 197 mg/dL (<200); HDL Cholesterol 59 mg/dL (40-60); Triglyceride 39 mg/dL (<150)
== END 2024-07-17 00:54 | disposition home or self-care (01) ==
PROVIDERS: PCP Nurse Practitioner Family; Visit Provider Nurse Practitioner Family
DX: Z00.00 Encounter for general adult medical examination without abnormal findings (principal)
CPT/HCPCS: 36415; 80061; 82947